=== PATIENT | female | born 1940 | race Caucasian/White ===

== ENCOUNTER 2021-06-12 18:55 | Emergency (ER) | payer OTHER, SELFPAY ==
[2021-06-12] MEDS ORDERED: IPRATROPIUM BROM 0.5 MG/2.5 ML VIAL.NEB (ATROVENT) INH ONE (19:00)
[2021-06-12] MEDS ORDERED: ALBUTEROL SULFATE 0.083% 2.5 MG/3 ML VIAL.NEB INH ONE (19:00)
--- NOTE | 2021-06-12 19:01 | NUR ---
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 pt gcs 15 c/o sob x3 days. hx of copd on 3L nc at home. received 1 neb tx with some relief. speaking in complete sentences, breathing tachypneic saturation 93% on 3L, ra saturation 88%. 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
--- NOTE | 2021-06-12 19:02 | NUR ---
Seen and examined by Dr. Alicea, ER Attending
--- NOTE | 2021-06-12 19:05 | NUR ---
Received endorsement from day shift, [id number], breathing spontaneously with O2 at 3L/min via NC, [id number]%, not in distress noted. With IV cannula g20 at left ac, patent noted. Vital signs stable.
--- NOTE | 2021-06-12 19:15 | NUR ---
Patient already had an IV cannula at left AC G20, PATENT. histologist technologist informed for blood drawn
--- NOTE | 2021-06-12 19:20 | NUR ---
Covid moni test and Flu A and B test done, sent to lab
--- NOTE | 2021-06-12 19:23 | NUR ---
Chest Xray done at bedside
--- NOTE | 2021-06-12 20:10 | NUR ---
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
[2021-06-12 20:46] LABS: BASOPHILS % (AUTO) 0.7 % (0.0-2.0); EOSINOPHILS # (AUTO) 0.3 K/uL (0.0-0.4); EOSINOPHILS % (AUTO) 5.9 % (0.0-4.0); HEMATOCRIT 33.8 % (36-48); HEMOGLOBIN 10.5 g/dL (12.0-16.0); LYMPHOCYTES # (AUTO) 0.7 K/uL (1.0-5.5); LYMPHOCYTES % (AUTO) 13.5 % (20.5-51.5); MEAN CORPUSCULAR HEMOGLOBIN 25 pg (27-31); MEAN CORPUSCULAR HGB CONC 31 % (32-36); MEAN CORPUSCULAR VOLUME 82 fL (79.0-98.0); MONOCYTES # (AUTO) 0.3 K/uL (0.0-1.0); MONOCYTES % (AUTO) 6.5 % (1.7-9.3); NEUTROPHILS # (AUTO) 3.9 K/uL (1.8-7.7); NEUTROPHILS % (AUTO) 73.4 % (40.0-70.0); PLATELET COUNT (AUTO) 192 K/uL (130-430); RED BLOOD CELL COUNT(AUTO) 4.15 MIL/uL (4.2-6.2); RED CELL DISTRIBUTION WIDTH 14.7 % (9.0-15.0); WHITE BLOOD COUNT (AUTO) 5.3 K/uL (4.8-10.8)
[2021-06-12 20:53] LABS: CALCIUM 8.8 mg/dL (8.4-11.0); CHLORIDE 101 mmol/L (98-107); CREATININE 1.48 mg/dL (0.55-1.30); GLUCOSE 217 mg/dL (70-99); POTASSIUM 3.3 mmol/L (3.5-5.1); SODIUM SERUM 143 mmol/L (136-145); UREA NITROGEN, BLOOD 19 mg/dL (8-21)
[2021-06-12 21:00] LABS: ALANINE AMINOTRANSFERASE 17 U/L (12-78); ASPARTATE AMINOTRANSFERASE 23 U/L (10-37); TOTAL BILIRUBIN 0.4 mg/dL (0.0-1.0)
[2021-06-12 21:07] LABS: ANION GAP -1 (5-15)
--- NOTE | 2021-06-12 21:28 | NUR ---
Re-assesed by Dr. Alicea, for possible discharge
[2021-06-12 21:40] VITALS: BP_SYST 112
--- NOTE | 2021-06-12 21:40 | NUR ---
Patient given written and verbal discharge instructions and verbalizes understanding. ER MD discussed with patient the results and treatment provided. Patient in stable condition. ID arm band removed. IV catheter removed intact and dressing applied, no active bleeding. NO Rx of given. Patient educated to follow up with PMD. Pain Scale 0/10. Opportunity for questions provided and answered.
== END 2021-06-12 21:40 | disposition home or self-care (01) ==
LOC: SED 18:55
DX: J44.9 Chronic obstructive pulmonary disease, unspecified (principal); Z20.822 Contact with and (suspected) exposure to COVID-19
CPT/HCPCS: 36415; 71045; 80053; 83605; 83880; 84484; 85025; 86710; 87040; 87426; 93005; 94640; 99285; J7613